=== PATIENT | female | born 1960 | race Caucasian/White ===

== ENCOUNTER 2020-11-03 08:20 | Emergency (ER) | payer SELFPAY ==
[~2020-11-03] VITALS: Ht 160 cm; Wt 63.5 kg
[2020-11-03 08:22] VITALS: BP 153/68
== END 2020-11-03 11:12 | disposition home or self-care (01) ==
LOC: EDH 08:20
DX: M25.562 Pain in left knee (principal); Z88.5 Allergy status to narcotic agent; W18.39XA Other fall on same level, initial encounter; Y93.01 Activity, walking, marching and hiking; Y92.89 Other specified places as the place of occurrence of the external cause; Y99.8 Other external cause status
CPT/HCPCS: 99281